=== PATIENT | male | born 1965 | race Caucasian/White ===

== ENCOUNTER → 2016-08-19 | Outpatient (CLI) | payer OTHER | LOC: BMCIMAGING 09:01 | PROVIDERS: ATTEND Family Medicine | DX: M25.532 Pain in left wrist (principal) ==

== ENCOUNTER 2016-09-13 14:35 | Observation (INO) | payer OTHER ==
[2016-09-13 14:42] VITALS: RESP 16
--- NOTE | 2016-09-13 15:43 | EDPHY ---
HPI/HX/ROS/PE/MDM Narrative: CHIEF COMPLAINT: Abdominal pain, diarrhea HISTORY OF PRESENT ILLNESS: The patient is a 50-year-old male presenting with abdominal pain and diarrhea. The patient had severe abdominal pain 5 days ago that lasted about 30 seconds and resolved. He also reports pain in the lower right rib area anteriorly. That rib pain resolved on its own. Pain resolved. Returned last night lasted for about 30 seconds, improved after sitting up. Today patient reports dull abdominal pain all day. Cramping sensation. 10 episodes of diarrhea today. He states his usual medications do not ever cause him to have diarrhea. No fever. No known liver issues. No history of blood clot. No fever, chills, chest pain, shortness of breath, palpitations, vomiting , urinary complaints, headache, or lightheadedness. REVIEW OF SYSTEMS: Aside from elements discussed in the HPI, a comprehensive 10-point review of systems was reviewed and is negative. PAST MEDICAL HISTORY: High cholesterol, Kidney stones. SOCIAL HISTORY: Daily alcohol use. Nonsmoker. VITAL SIGNS: Reviewed by me GENERAL: Well-developed, well-nourished, resting comfortably in no respiratory distress. HEENT: Atraumatic. Eyes: No icterus, no injection. Mouth: moist mucous membranes. No erythema or lesions. Neck: supple with no adenopathy. LUNGS: Clear to auscultation bilaterally, no crepitus, no palpable chest wall tenderness. CARDIAC: Regular rate and rhythm, no rubs, murmurs or gallops. ABDOMEN: Soft, very mild right upper quadrant tenderness. Liver feels slightly enlarged. No lower quadrant tenderness. No guarding or rebound. BACK: Lipoma on back. EXTREMITIES: No trauma. No edema. Range of motion is normal throughout. NEURO: Alert and oriented, grossly nonfocal. SKIN: Warm and dry, no rash. PSYCHIATRIC: Normal mentation, no agitation. Portions of this note were transcribed by a medical information specialist. I personally performed a history, physical exam, medical decision making, and confirmed accuracy of information the transcribed note. ED Course: The patient is a 50-year-old male presenting with abdominal pain and diarrhea. The patient had 2 bouts of severe abdominal pain/ low chest pain within the past 5 days. These episodes lasted for 30 seconds and resolved on their own. The pain was localized to the right upper quadrant. Today the patient reports a cramping sensation in his abdomen as well as acute onset of diarrhea. The patient has had up to 10 episodes of watery diarrhea today. On exam he has tenderness to this area. Plan for labs and IV fluids. A chest x-ray was obtained. I viewed the images myself on the PACS system. See the full radiology report in the imaging section. Patient is hypokalemic at 2.6. Plan for Potassium PO and IV. EKG was ordered. 12-LEAD EKG: Please see the full report in [facility]. My interpretation: Elongated QT. 5:30 p.m.: The hospitalist, Dr. Cardozo, will admit the patient to the [facility]. MDM: Diff dx of patients complaints of diarrhea and abdominal pain considered including infectious diarrhea, gall stones, pancreatitis, gastritis, enteritis, renal failure, dehydration, hepatitis. - Data Points Imaging Results: Imaging Impressions Chest X-Ray 09/13/16 16:20 Impression : 1. No active cardiopulmonary disease seen. 2. Old healed left-sided rib fractures. 3. 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 Laboratory Results: Laboratory Results 09/13/16 16:15 09/13/16 16:15 09/13/16 09/13/16 16:15 16:15 WBC 5.74 10^3/uL 10^3/uL (3.80-9.50) RBC 3.17 10^6/uL L 10^6/uL (4.40-6.38) Hgb 12.3 g/dL L g/dL (13.7-17.5) Hct 33.0 % L % (40.0-51.0) MCV 104.1 fL H fL (81.5-99.8) MCH 38.8 pg H pg (27.9-34.1) MCHC 37.3 g/dL H g/dL (32.4-36.7) RDW 14.1 % % (11.5-15.2) Plt Count 179 10^3/uL 10^3/uL (150-400) MPV 8.8 fL fL (8.7-11.7) Neut % (Auto) 47.7 % % (39.3-74.2) Lymph % (Auto) 39.9 % % (15.0-45.0) [facility] % (Auto) 9.8 % % (4.5-13.0) Eos % (Auto) 1.9 % % (0.6-7.6) Baso % (Auto) 0.5 % % (0.3-1.7) Nucleat RBC Rel Count 0.5 % H % (0.0-0.2) Absolute Neuts (auto) 2.74 10^3/uL 10^3/uL (1.70-6.50) Absolute Lymphs (auto) 2.29 10^3/uL 10^3/uL (1.00-3.00) Absolute Monos (auto) 0.56 10^3/uL 10^3/uL (0.30-0.80) Absolute Eos (auto) 0.11 10^3/uL 10^3/uL (0.03-0.40) Absolute Basos (auto) 0.03 10^3/uL 10^3/uL (0.02-0.10) Absolute Nucleated RBC 0.03 10^3/uL H 10^3/uL (0-0.01) Immature Gran % 0.2 % % (0.0-1.1) Immature Gran # 0.01 10^3/uL 10^3/uL (0.00-0.10) Sodium 140 mEq/L mEq/L (134-144) Potassium 2.6 mEq/L L* mEq/L (3.5-5.2) Chloride 102 mEq/L mEq/L (97-110) Carbon Dioxide 26 mEq/l mEq/l (22-31) Anion Gap 12 mEq/L mEq/L (8-16) BUN 8 mg/dL mg/dL (7-23) Creatinine 0.7 mg/dL mg/dL (0.7-1.3) Estimated GFR > 60 Glucose 106 mg/dL H mg/dL (70-100) Calcium 8.6 mg/dL mg/dL (8.5-10.4) Total Bilirubin 2.7 mg/dL H mg/dL (0.1-1.4) Conjugated Bilirubin 0.5 mg/dL mg/dL (0.0-0.5) Unconjugated Bilirubin 2.2 mg/dL H mg/dL (0.0-1.1) AST 116 IU/L H IU/L (17-59) ALT 66 IU/L IU/L (21-72) Alkaline Phosphatase 86 IU/L IU/L (38-126) Troponin I < 0.012 ng/mL ng/mL (0-0.034) Total Protein 7.3 g/dL g/dL (6.3-8.2) Albumin 4.0 g/dL g/dL (3.5-5.0) Lipase 409.0 IU/L H IU/L (23-300) Ethyl Alcohol < 10 mg/dL mg/dL (0-10) Medications Given: Discontinued Medications Sodium Chloride (Ns) 1,000 mls @ 0 mls/hr IV ONCE ONE PRN Reason: Wide Open Stop: 09/13/16 16:22 Last Admin: 09/13/16 16:32 Dose: 1,000 mls Potassium Chloride (Klor-Con) 40 meq PO ONCE ONE Stop: 09/13/16 16:57 Last Admin: 09/13/16 17:29 Dose: 40 meq General Time Seen by Provider: 09/13/16 15:15 Initial Vital Signs: Initial Vital Signs Temperature (C) 36.3 C 09/13/16 14:39 Heart Rate 74 09/13/16 14:39 Respiratory Rate 16 09/13/16 14:39 Blood Pressure 167/107 H 09/13/16 14:39 O2 Sat (%) 97 09/13/16 14:39 O2 Delivery Mode Room Air Allergies/Adverse Reactions: No Known Allergies Allergy (Verified 09/13/16 14:39) Home Medications: Medication Instructions Recorded Adalimumab [Humira Pen] 40 mg SQ Q14D 09/13/16 Allopurinol [Allopurinol 100 MG 100 mg PO DAILY 09/13/16 (*)] Gemfibrozil [Lopid 600 MG (*)] 600 mg PO BIDAC 09/13/16 Levothyroxine [Synthroid 50 mcg 50 mcg PO DAILY06 09/13/16 (*)] Departure - Departure Disposition: [facility] Clinical Impression: Hypokalemia Diarrhea Qualifiers: Diarrhea type: unspecified type Qualified Code(s): R19.7 - Diarrhea, unspecified Abdominal pain Qualifiers: Abdominal location: right upper quadrant Qualified Code(s): R10.11 - Right upper quadrant pain Condition: Fair Report Scribed for: [employer] Report Scribed by: Inés Feliciano of Report: 09/13/16 Time of Report: 16:09
[2016-09-13] MEDS ORDERED: NS 1,000 ML IV ONE (16:21)
[2016-09-13 16:31] LABS: % IMMATURE GRANULYOCYTES 0.2 % (0.0-1.1); ABSOLUTE IMMATURE GRANULOCYTES 0.01 10^3/uL (0.00-0.10); ABSOLUTE NRBC COUNT 0.03 10^3/uL (0-0.01); ADD DIFF? NO; ADD MORPH? NO; ADD SCAN? NO; ATYPICAL LYMPHOCYTE FLAG 20 (0-99); FRAGMENT RBC FLAG 0 (0-99); HEMOGLOBIN 12.3 g/dL (13.7-17.5); LEFT SHIFT FLG 0 (0-99); LIPEMIA HEMOLYSIS FLAG 90 (0-99); MEAN CELL HEMOGLOBIN 38.8 pg (27.9-34.1); MEAN CELL HEMOGLOBIN CONCENTR. 37.3 g/dL (32.4-36.7); MEAN CELL VOLUME 104.1 fL (81.5-99.8); MEAN PLATELET VOLUME 8.8 fL (8.7-11.7); NRBC-AUTO% 0.5 % (0.0-0.2); PLATELET CLUMPS FLAG 0 (0-99); PLATELET COUNT 179 10^3/uL (150-400); RED BLOOD CELL COUNT 3.17 10^6/uL (4.40-6.38); RED CELL DISTRIBUTION WIDTH 14.1 % (11.5-15.2)
[2016-09-13 16:45] LABS: ALANINE AMINOTRANSFERASE 66 IU/L (21-72); ALKALINE PHOSPHATASE 86 IU/L (38-126); ANION GAP 12 mEq/L (8-16); ASPARTATE AMINOTRANSFERASE 116 IU/L (17-59); BILIRUBIN,TOTAL 2.7 mg/dL (0.1-1.4); BILIRUBIN-CONJUGATED 0.5 mg/dL (0.0-0.5); BILIRUBIN-UNCONJUGATED 2.2 mg/dL (0.0-1.1); CALCIUM 8.6 mg/dL (8.5-10.4); CARBON DIOXIDE 26 mEq/l (22-31); CHLORIDE 102 mEq/L (97-110); CREATININE 0.7 mg/dL (0.7-1.3); ETHANOL SERUM < 10 mg/dL (0-10); GLOMERULAR FILTRATION RATE > 60; GLUCOSE 106 mg/dL (70-100); SODIUM 140 mEq/L (134-144); TOTAL PROTEIN 7.3 g/dL (6.3-8.2)
[2016-09-13 16:54] LABS: POTASSIUM 2.6 mEq/L (3.5-5.2)
[2016-09-13 16:55] LABS: TROPONIN I < 0.012 ng/mL (0-0.034)
[2016-09-13] MEDS ORDERED: POTASSIUM CL 20 MEQ TAB PO ONE (16:56)
--- NOTE | 2016-09-13 17:02 | CPEKG ---
Heart Rate: 66 RR Interval: 909 P-R Interval: 196 QRSD Interval: 86 QT Interval: 460 QTC Interval: 482 P [place]hol[place]: 37 QRS [place]holts: -7 T Wave [place]hol[place]: -10 EKG Severity - ABNORMAL ECG - EKG Impression: SINUS RHYTHM EKG Impression: CONSIDER POSTERIOR INFARCT EKG Impression: NONSPECIFIC T ABNORMALITIES, INFERIOR LEADS EKG Impression: BORDERLINE PROLONGED QT INTERVAL Electronically Signed By: Daquan Melton 15-Sep-2016 00:53:59
[2016-09-13] MEDS: POTASSIUM Cl (KCl) 100 ML IV SCH ×4 (17:29→22:18)
[2016-09-13] MEDS ORDERED: ONDANSETRON DISINTEGRATING 4 MG TAB PO PRN (18:21)
[2016-09-13] MEDS ORDERED: ONDANSETRON 4 MG/2 ML VIAL IVP PRN (18:21)
[2016-09-13] MEDS ORDERED: ACETAMINOPHEN 325 MG TAB PO PRN (18:21)
[2016-09-13] MEDS ORDERED: PROTOCOL POTASSIUM 1 DOSE MISC PRN (18:28)
[2016-09-13] MEDS ORDERED: PROTOCOL MAGNESIUM 1 DOSE IV PRN (18:28)
[2016-09-13] MEDS ORDERED: LORazepam 1 MG TAB PO PRN (18:29)
[2016-09-13] MEDS ORDERED: LORazepam 2 MG/ML INJ IVP ONE (18:29)
[2016-09-13] MEDS ORDERED: LORazepam 2 MG/ML INJ IVP PRN (18:29)
[2016-09-13] MEDS ORDERED: LORazepam 1 MG TAB PO ONE (18:29)
[2016-09-13] MEDS ORDERED: NS 1,000 ML IV SCH (18:30)
--- NOTE | 2016-09-13 19:03 | GHP ---
[f rep st] HISTORY AND PHYSICAL DATE OF ADMISSION: 09/13/2016 CHIEF COMPLAINT: Right lower rib pain. HISTORY OF PRESENT ILLNESS: This is a 50-year-old man who presents with right lower rib pain. He says that this was acute, happened 2 times today. It is nonpleuritic. Notably over the past 10 days to 2 weeks he has had significant diarrhea which he describes as watery about 12 times per day. He has not been eating very well. He has had abdominal pain and cramping during this. It is unclear if the lower rib pain is really due to abdominal discomfort. He notes that he was on penicillin about a month ago for strep throat. He also traveled to [place] about a month and a half ago. No one else is sick around him. He has not taken anything for the diarrhea. He does drink a lot of alcohol. He tells me he has increased his alcohol consumption this year since he got a divorce. He is drinking about 10-12 drinks of vodka a day. He has never had withdrawal. His last drink was yesterday. PAST MEDICAL/SURGICAL HISTORY: 1. Hyperlipidemia. 2. Gout. 3. Psoriasis. 4. Alcohol abuse. 5. Kidney stones. MEDICATIONS: Please see medication reconciliation. ALLERGIES: None. FAMILY HISTORY: His father had CHF. His mother had MS. SOCIAL HISTORY: Drinks alcohol as above. REVIEW OF SYSTEMS: A 10-point review of systems is conducted and is negative except per HPI. PHYSICAL EXAMINATION: VITAL SIGNS: Blood pressure 168/98, heart rate 74, respiration rate 16, satting 91% on room air, temperature is 36.6. GENERAL: The patient is a pleasant male who appears mildly tremulous otherwise in no acute distress. HEENT: Normocephalic, atraumatic. CARDIOVASCULAR: Regular rate and rhythm. No murmurs, rubs, or gallops. PULMONARY: Lungs clear to auscultation bilaterally. ABDOMEN: Hyperactive bowel sounds. He is not distended. He is mildly tender to palpation. He has no tenderness to palpation on the right upper quadrant or on the right lower ribs. SKIN: No rash. : There is no [place]. NEUROLOGIC: Alert and oriented x3. He is moving all extremities. PSYCHIATRIC: Normal mood and affect. LABORATORY DATA: He is mildly anemic. Potassium is 2.6, total bilirubin is 2.7 , AST is 116. Alcohol is negative. DATA: 1. ECG, which I personally viewed and interpreted, shows sinus rhythm. He has a U wave. 2. Chest x-ray, which I personally viewed and interpreted, shows old left- sided rib fractures. Read is ankylosis of the spine. IMPRESSION/PLAN: A 50-year-old man with hypokalemia. 1. Hypokalemia: Likely due to poor p.o. intake and diarrhea. He is being aggressively repleted. We will continue this. We will also check a magnesium. 2. Diarrhea: I am concerned that this may be Clostridium difficile given recent antibiotic use and his history. I will check a GI panel. He also traveled to [place] recently. 3. Right-sided rib pain: I think this is more likely abdominal in nature. He had a negative chest x-ray for any rib pathology. We will follow this clinically. 4. Psoriasis: He is on Humira. He is somewhat immunosuppressed. 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 We will need to follow up as an outpatient. 5. Alcohol abuse and possible withdrawal: I placed him on CIWA, will schedule Librium, give him thiamin. He tells me he has never withdrawn before; however, given his history this is concerning. 6. Hyperlipidemia: We will hold gemfibrozil in the setting of diarrhea. 7. Gout: Continue his allopurinol. /[id number]/MODL MTDD
[2016-09-13 19:07] LABS: MAGNESIUM 1.5 mg/dL (1.6-2.3)
[2016-09-13 19:12] VITALS: O2SAT 97
[2016-09-13 19:19] LABS: POTASSIUM 2.6 mEq/L (3.5-5.2)
[2016-09-13] MEDS ORDERED: MAGNESIUM SULF 1 GM/DEXTROSE 100 ML IV ONE (21:36)
[2016-09-13] MEDS: chlordiazePOXIDE 25 MG CAP PO SCH (21:38)
[2016-09-14 02:38] LABS: MAGNESIUM 1.9 mg/dL (1.6-2.3); POTASSIUM 2.8 mEq/L (3.5-5.2)
[2016-09-14] MEDS ORDERED: POTASSIUM CL 10 MEQ TAB PO ONE ×2 (03:19→08:21)
[2016-09-14] MEDS: POTASSIUM Cl (KCl) 100 ML IV SCH ×4 (03:23→09:08)
[2016-09-14] MEDS ORDERED: LEVOTHYROXINE 50 MCG TAB PO SCH (06:00)
[2016-09-14 06:08] LABS: % IMMATURE GRANULYOCYTES 0.2 % (0.0-1.1); ABSOLUTE IMMATURE GRANULOCYTES 0.01 10^3/uL (0.00-0.10); ADD DIFF? NO; ADD MORPH? NO; ADD SCAN? NO; ATYPICAL LYMPHOCYTE FLAG 20 (0-99); FRAGMENT RBC FLAG 0 (0-99); HEMATOCRIT 30.2 % (40.0-51.0); HEMOGLOBIN 11.2 g/dL (13.7-17.5); LEFT SHIFT FLG 0 (0-99); LIPEMIA HEMOLYSIS FLAG 90 (0-99); MEAN CELL HEMOGLOBIN 38.9 pg (27.9-34.1); MEAN CELL HEMOGLOBIN CONCENTR. 37.1 g/dL (32.4-36.7); MEAN CELL VOLUME 104.9 fL (81.5-99.8); MEAN PLATELET VOLUME 8.9 fL (8.7-11.7); PLATELET CLUMPS FLAG 0 (0-99); PLATELET COUNT 159 10^3/uL (150-400); RED BLOOD CELL COUNT 2.88 10^6/uL (4.40-6.38); RED CELL DISTRIBUTION WIDTH 14.1 % (11.5-15.2)
[2016-09-14 06:55] LABS: ANION GAP 9 mEq/L (8-16); CALCIUM 7.8 mg/dL (8.5-10.4); CARBON DIOXIDE 25 mEq/l (22-31); CHLORIDE 105 mEq/L (97-110); CREATININE 0.6 mg/dL (0.7-1.3); GLOMERULAR FILTRATION RATE > 60; GLUCOSE 114 mg/dL (70-100); MAGNESIUM 1.8 mg/dL (1.6-2.3); SODIUM 139 mEq/L (134-144)
[2016-09-14 07:58] VITALS: BP 117/70; PULSE 76; TEMP 98.6
[2016-09-14] MEDS ORDERED: ALLOPURINOL 100 MG TAB PO SCH (09:00)
[2016-09-14] MEDS ORDERED: THIAMINE HCL 100 MG TAB PO SCH (09:00)
[2016-09-14] MEDS: chlordiazePOXIDE 25 MG CAP PO SCH (09:10)
--- NOTE | 2016-09-14 13:06 | GDS ---
[f rep st] DISCHARGE SUMMARY DISCHARGE DIAGNOSES: 1. Hypokalemia. 2. Diarrhea. 3. Alcohol abuse. 4. Chronic psoriasis. 5. Hyperlipidemia. 6. Gout. HISTORY OF PRESENT ILLNESS: A 50-year-old male with a history of alcohol abuse who presents with co mplaints of diarrhea and weakness. For details of patient's initial presentation, please see the hi story and physical dated 09/13/2016. CONSULTATIVE SERVICES: None. PROCEDURES: None. HOSPITAL COURSE: By issue. 1. Hypokalemia presumed secondary to diarrhea and poor oral intake. Patient had his potassium leve ls repleted during his hospital stay, as well as fluid resuscitation. He has been encouraged to con tinue a well-rounded diet with good fluid intake at disposition. 2. Diarrhea. Patient did have recent travel. Stool culture testing and PCR analysis were sent and no viral or bacterial pathogen was identified. Patient only had 1 stool overnight at his observati on and did receive aggressive fluid resuscitation. We encourage, again, the patient remain hydrated and away from alcohol after disposition. 3. Alcohol abuse. We did discuss this with the patient. He shares some intention for cessation. Resources were provided. 4. Psoriasis. He continues his home medications without alteration. MEDICATIONS AT THE TIME OF DISPOSITION: Please reference medication reconciliation printed on 09/14. PENDING STUDIES: At the time of this dictation are none. FOLLOWUP APPOINTMENTS: With his primary care provider for laboratory check and overall followup in 2 to 3 weeks postdisposition. /[id number]/MODL
== END 2016-09-14 12:35 | disposition home or self-care (01) ==
LOC: F1N 18:31
PROVIDERS: ADMIT Student in an Organized Health Care Education/Training Program; ATTEND Hospitalist
DX: E87.6 Hypokalemia (principal); R19.7 Diarrhea, unspecified; F10.10 Alcohol abuse, uncomplicated; L40.9 Psoriasis, unspecified; E78.5 Hyperlipidemia, unspecified; M10.9 Gout, unspecified; M45.4 Ankylosing spondylitis of thoracic region; Z87.442 Personal history of urinary calculi
CPT/HCPCS: 71020; 93005; 96360; 99285; G0378; G0480; J3475

== ENCOUNTER → 2016-09-15 | Outpatient (CLI) | payer OTHER | LOC: BMCIMAGING 09:49 | PROVIDERS: ATTEND Physician Assistant | DX: S52.515D Nondisplaced fracture of left radial styloid process, subsequent encounter for closed fracture with routine healing (principal) ==

== ENCOUNTER 2018-10-05 09:28 | Emergency (ER) | payer OTHER ==
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
[2018-10-05 10:11] LABS: PLATELET COUNT 276 10^3/uL (150-400)
[2018-10-05] MEDS ORDERED: POTASSIUM CL 20 MEQ PKT PO ONE (10:48)
[2018-10-05 14:32] VITALS: BP 140/98
--- NOTE | 2018-10-05 15:42 | ASMTTLCEVL ---
TLC Evaluation - Basic Information Evaluation Start Date and 10/05/2018 12:00 PM Time Hospital Status Answers: M1 Hold 72-hr M1 Hold Start Date 10/05/2018 09:30 AM and Time Patient statement Notes: "I had been drinking and had a big fight with my girl friend she left last night and stayed in a hotel and I told my son that it could be over for us. He picked me up from [facility] and drove me home. My ex- had called the police on me saying I might be suicidal. I'm not suicidal I do have some anxiety though." Narrative Notes: PT is a 53 YO male, , with 2 grown children, with no hx of mental illness. Pt presented to ED via Police on an M1 Hold due to suicidal statements made to his daughter last night. Pt reportedly had firearms in the house which were removed by his daughter. Per ED Report complains that was brought in by police because somebody was concerned that he was suicidal. The patient admits that he got in a fight with his girlfriend last night while drinking and watching the [employer] game. He called his son to pick him up and drive him home. Went to bed, woke up this morning was listening to music when the police knocked on his door and brought him into the emergency department after place him on an M1 hold. The patient himself denies suicidal ideation though there are some statements made police by family members that he was very down and wanted to . On MondayOctober 02, after breaking up with his girlfriend according to the M1 hold he expressed Thoughts are concerning enough to his daughter that he was a threat to himself that she removed his firearms from the home. Then on September 05 he called his children and told them that he left them and that he wanted to tell them goodbye. Per pt's GF Connie Sawyer [phone] they had a fight and pt has been drinking daily. They had also used xanax in [place] and 3 days ago they flushed them all. She reported that she believes the pt is safe and the pt's ex - who is a psychologist had to report the things he said to the police because of her license just to be safe. She confirms all fire arms are out of the house. Diagnosis History Notes: None reported Prior suicide attempts Notes: None reported Prior hospitalizations Notes: None reported Treatment Responses Notes: PT went to see a therapist a single time over a month ago for anxiety. History of violence Notes: None reported Therapist: None reported Psychiatrist: None reported Medications (name, dosage, route, freq uency) Notes: None reported Allergies/Reaction Notes: Hay Fever and cats Sleep Notes: Good Appetite Notes: Good Medical/Surgical history Notes: None reported Substance use history (frequency, intensity, his tory, duration) Notes: ETOH Daily 3-4 cocktails Recent xanax abuse from [employer] trip supply Family composition Notes: 2 Sisters; Father diseased at 81YO, Mother is alive; Pt has 3 children 2 sons 20yo, 19yo and a 15 yo daughter with joint custody. Need for family Answers: Yes participation in patient's care Family psychiatric/substance abuse history Notes: NO hx of mental illness, some alcohol abuse Developmental history Notes: Denied ADD or ADHD, TBI, and concussions. PT denied any emotional, physical or sexual abuse growing up. Abuse concerns Answers: None Marital status/children Notes: , 3 Kids Sons 20,19yo, Daughter is 15YO, 50% custody Living situation Notes: PT lives up in [facility] with his girlfriend. 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 Patient's strengths Answers: Athletic (Please select at least TWO strengths): Funny/Using Humor Good Friend to Others Good Parent Insightful Intelligent Theresa Motivated for Treatment Responsible/Dependable Supportive/Compassionate Supportive Family Willingness TLC Evaluation - Mental Status Exam Appearance: Answers: Appropriate Clean Well Groomed Eye Contact: Answers: Appropriate for Culture Good/Direct Mood: Answers: Depressed Affect: Answers: Appropriate Anxious Apprehensive Congruent w/ Mood Behavior: Answers: Appropriate Cooperative Anxious Speech: Answers: Relevant Logical Clear Coherent Thought Process: Answers: Organized Oriented Alert Goal Oriented Insight: Answers: Good Judgement: Answers: Good Manic Signs/Symptoms Answers: Impulsivity Irritability Mood Swings Depression Answers: Sad Mood Signs/Symptoms: Anxiety Signs/Symptoms Answers: Generalized Anxiety Panic Attacks Hallucinations: Answers: None Current Stage of Change Answers: Contemplation Pt reported to have Answers: Yes suicidal/self-injuring ideation/behavior? Pt reported to be making Answers: No suicidal/self-injuring threats? Pt reported to have Answers: No aggression/assault ideation/behavior? Pt reported to be making Answers: No aggression/assault threats? Pt exhibits inability to Answers: No care for self/grave disability? Ideation/behavior is Answers: No chronic? Patient has a specific Answers: No plan? Pt has access to means to Answers: No execute the plan? Ideation involves Answers: No serious/lethal intent? Ideation has Answers: No delusional/hallucinatory content? History of Answers: No suicidal/self-injuring ideation, behavior, or threats? History of Answers: No aggressive/assaultive ideation, behavior, or threats? History of serious Answers: No physical harm to self/others while in treatment setting? [facility] Evaluation - Suicide/Homicide Risk Suicide Risk Factors: Answers: Agitation Alcohol/Heavy Drug Use Financial Difficulties Lack/Loss of Employment Problems with Partner Homicide/violence risk Answers: None factors: Current Suicidal Answers: No Ideation? Current Suicidal Ideation Answers: No in the Past 48 Hours? Current Suicidal Ideation Answers: No in the Past Month? Current Suicidal Answers: No Ideation, Worst Ever? Suicide Internal Answers: Absence of Psychosis Protective Factors: Frustration Tolerance Nery with Stress Suicide External Answers: Responsibility to Pets Protective Factors: Responsibility to Children Social Support Ranking of patient's Answers: Low suicidal risk: Ranking of patient's Answers: Low homicidal risk: TLC Evaluation - Wrap-up BDI Total Score: 9 BDI Question #2 Score: 1 BDI Question #9 Score: 0 BSS Total Score: 0 AXIS I Diagnosis (include DSM-V and ICD-10 codes), must also be entered in [employer], which is the source of truth. Notes: Unspecified Anxiety Disorder 300.00 (F41.9) In consultation with [facility] ED Physician Felix Keys MD, and on-call [place] Psychiatrist, Michael Stephens MD both concurred that pt does not appear to meet 27-65 criteria requiring psychiatric hospitalization as pt does not appear to be at risk of harm to self, others, or gravely disabled due to a mental illness condition. Evaluation End Date and 10/05/2018 02:30 PM Time (HH:SEDRICK): Date Signed: 10/05/2018 03:41 PM Electronically Signed By:Felix Turcios
--- NOTE | 2018-10-05 15:46 | ASMTTCLDSP ---
TLC Discharge Disposition Disposition: Answers: Discharge Disposition Notes: Notes: Unspecified Anxiety Disorder 300.00 (F41.9) In consultation with [facility] ED Physician Felix Keys MD, and on-call [place] Psychiatrist, Michael Stephens MD both concurred that pt does not appear to meet 27-65 criteria requiring psychiatric hospitalization as pt does not appear to be at risk of harm to self, others, or gravely disabled due to a mental illness condition. both concurred that pt does not appear to meet 27-65 criteria requiring psychiatric hospitalization as pt does not appear to be at risk of harm to self, others, or gravely disabled due to a mental illness condition. Discharge Concerns/Recommendations: Notes: PT agreed to follow up with [place], and on-call [place] Psychiatrist, Michael Stephens MD concurred with dispo and scheduled a crisis team to follow up with pt and medical team to follow up regarding pt's anxiety and drinking. PT was given crisis hotline information as well and agreed to use theses emergency resources to keep himself safe if needed. PT's GF also reported she'd be staying with him for the next 3 days and help to ensure he would be safe. Was patient given the Answers: Not applicable Inpatient Behavioral Health Prohibited Belongings List while in the ED? Psychiatrist vacating M1 Dr. Felix Keys MD Hold: Date and time M1 hold 10/05/2018 02:30 PM vacated (time format is hh:mm): Type of Hold: Answers: M1/72-hour Hold Hold initiated by: Answers: Police Date Signed: 10/05/2018 03:45 PM Electronically Signed By:Felix Turcios
== END 2018-10-05 14:32 | disposition home or self-care (01) ==
PROC: GZ11ZZZ Psychological Tests, Personality and Behavioral (ICD-10-PCS; principal; 2018-10-05)
DX: R45.851 Suicidal ideations (principal); F10.14 Alcohol abuse with alcohol-induced mood disorder
CPT/HCPCS: 80305; G0480